=== PATIENT | male | born 1960 | race African-American/Black ===

== ENCOUNTER 2021-05-17 10:41 | Emergency (ER) | payer OTHER ==
[~2021-05-17] VITALS: Ht 188 cm; Wt 129.5 kg
[2021-05-17] MEDS ORDERED: ALBUTEROL (0.083%) 2.5MG/3ML NEB HHN STA (11:10)
[2021-05-17] MEDS ORDERED: IPRATROPIUM BROMIDE (0.02%) 0.5MG/2.5ML NEB HHN STA (11:10)
[2021-05-17] MEDS ORDERED: HYDRALAZINE 20MG/ML VIAL IV ONE (11:30)
[2021-05-17] MEDS ORDERED: FUROSEMIDE 40MG/4ML VIAL IVP ONE (12:30)
[2021-05-17 12:39] LABS: BASOPHILS % 0.8 % (0.0-2.0); EOSINOPHILS % 2.1 % (0.0-5.0); HEMATOCRIT. 40.6 % (42.0-52.0); HEMOGLOBIN. 13.3 g/dL (14.0-18.0); MEAN CORPUSCULAR HEMOGLOBIN 25.7 pg (28.0-32.0); MEAN CORPUSCULAR VOLUME 78.3 fL (80.0-94.0); MEAN PLATELET VOLUME 9.2 fl (7.4-10.4); MONOCYTES % 12.2 % (2.0-8.0); NEUTROPHILS % 55.9 % (40.0-76.0); PLATELET 159 x1000/uL (130-400); RED BLOOD CELL COUNT 5.19 mill/uL (4.7-6.1)
[2021-05-17 12:46] LABS: CHLORIDE 108 mEq/L (98-107)
[2021-05-17] MEDS ORDERED: ASPIRIN 325MG EC TABLET PO NR (13:15)
[2021-05-17] MEDS ORDERED: IOHEXOL-350 100 ML BOTTLE ONE (16:01)
[2021-05-17] MEDS ORDERED: CLONIDINE 0.2MG TABLET PO ONE (16:30)
[2021-05-17 18:00] VITALS: BP 165/94
== END 2021-05-17 18:33 | disposition short-term general hospital (02) ==
LOC: ER 10:41
DX: I11.0 Hypertensive heart disease with heart failure (principal); I50.9 Heart failure, unspecified; I24.9 Acute ischemic heart disease, unspecified; I44.4 Left anterior fascicular block; I49.1 Atrial premature depolarization; I25.10 Atherosclerotic heart disease of native coronary artery without angina pectoris; Z20.822 Contact with and (suspected) exposure to COVID-19; Z86.59 Personal history of other mental and behavioral disorders
CPT/HCPCS: 36415; 71045; 71275; 80053; 83880; 84484; 85025; 85379; 87426; 93005; 94640; 96374; 96375; 99291; J0360; J1940; Q9967; Z7610